=== PATIENT | male | born 1960 | race African-American/Black ===

== ENCOUNTER 2017-04-18 15:24 | Inpatient (IN) | payer SELFPAY ==
[~2017-04-18] VITALS: Ht 182.9 cm; Wt 122.3 kg
[2017-04-18 15:45] LABS: HEMATOCRIT 50.8 % (38.0-50.0); MCH 29.3 PG (29.0-34.0); MCHC 33.9 G/DL (30.0-36.0); MCV 86.4 FL (86-99); MEAN PLAT.VOLUME 13.1 uM^3 (9.0-12.4); NRBC (%) 0.3 /100 WBC (0-0); PLATELET COUNT 174 K/uL (156-360); RBC DIS.WIDTH-CV 13.1 % (11.8-14.6); RBC DIS.WIDTH-SD 40.7 % (39-53); RED BLOOD COUNT 5.88 M/uL (4.00-5.50); WHITE BLOOD COUNT 7.1 K/uL (4.1-10.2)
[2017-04-18 15:57] LABS: CHLORIDE 91 mEq/L (99-109); POTASSIUM 4.4 mEq/L (3.7-5.4); SODIUM 126 mEq/L (136-147)
[2017-04-18 16:00] LABS: ADD MIUA? NO; BILIRUBIN NEGATIVE; BLOOD NEGATIVE; COLOR COLORLESS ((YELLOW)); GLUCOSE (STRIP) >=500; KETONES 5; LEUKOCYTES NEGATIVE; NITRITE NEGATIVE; PROTEIN (STRIP) NEGATIVE; SPECIFIC GRAVITY 1.031 (1.000-1.030); UCUL ADDED? NO; UROBILINOGEN 0.2 MG/DL (0.2-1.0)
[2017-04-18 16:00] LABS: ANION GAP 12 MEQ/L (2-14)
[2017-04-18 16:01] LABS: TOTAL BILIRUBIN 0.8 mg/dL (0.0-1.0)
[2017-04-18 16:03] LABS: ALKALINE PHOSPHATASE 116 IU/L (3-129)
[2017-04-18 16:04] LABS: UREA NITROGEN (BUN) 26 mg/dL (9-23)
[2017-04-18 16:11] LABS: GFR ESTIMATE (CALCULATED) 37 mL/min/ (58.99-99999); GLUCOSE 822 mg/dL (70-99)
[2017-04-18 16:37] LABS: CARBON DIOXIDE (BICARBONATE) 26.1 MEQ/L (20-31)
[2017-04-18 18:55] LABS: CHLORIDE 96 mEq/L (99-109); POTASSIUM 4.7 mEq/L (3.7-5.4); SODIUM 132 mEq/L (136-147)
[2017-04-18 18:58] LABS: ANION GAP 10 MEQ/L (2-14)
[2017-04-18 19:01] LABS: GFR ESTIMATE (CALCULATED) 58 mL/min/ (58.99-99999); UREA NITROGEN (BUN) 22 mg/dL (9-23)
[2017-04-18 19:03] LABS: GLUCOSE 599 mg/dL (70-99)
[2017-04-18 22:19] VITALS: BP 127/76
[2017-04-19 04:19] LABS: POINT-OF-CARE METER ID UU13113725
[2017-04-19 06:03] LABS: POINT-OF-CARE METER ID UU13113774
[2017-04-19 06:13] LABS: HEMATOCRIT 46.9 % (38.0-50.0); MCH 29.3 PG (29.0-34.0); MCHC 33.7 G/DL (30.0-36.0); MCV 86.9 FL (86-99); MEAN PLAT.VOLUME 12.4 uM^3 (9.0-12.4); PLATELET COUNT 149 K/uL (156-360); RBC DIS.WIDTH-CV 13.1 % (11.8-14.6); RBC DIS.WIDTH-SD 41.1 % (39-53); WHITE BLOOD COUNT 5.6 K/uL (4.1-10.2)
[2017-04-19 06:42] LABS: ANION GAP 11 MEQ/L (2-14); CHLORIDE 102 MEQ/L (99-109); GFR ESTIMATE (CALCULATED) > 59 mL/min/ (58.99-99999); GLUCOSE 313 mg/dL (70-99); HDL CHOLESTEROL 30 MG/DL (Desirable>=40); LDL CHOLESTEROL 96 mg/dL (Desirable<100); NON-HDL CHOLESTEROL 149 mg/dL (Desirable<160); POTASSIUM 4.4 MEQ/L (3.7-5.4); SAMPLE HEMOLYSIS CHECK 0; SAMPLE ICTERIC CHECK 0; SAMPLE LIPEMIA CHECK 0; SODIUM 137 MEQ/L (136-147); TOTAL CHOLESTEROL 179 mg/dL (Desirable<200); TRIGLYCERIDES 263 MG/DL (Normal: <150); UREA NITROGEN (BUN) 17 mg/dL (9-23)
[2017-04-19 07:05] VITALS: BP 133/83
[2017-04-19 08:42] LABS: Estimated Average Glucose 378 mg/dL (70-123); HEMOGLOBIN A1c (GLYCOHEMOGLOB) 14.8 % HGB (Below 5.7)
[2017-04-19 10:50] LABS: POINT-OF-CARE METER ID UU13113725
[2017-04-19 14:05] LABS: POINT-OF-CARE METER ID UU13113774
[2017-04-19 14:12] LABS: POINT-OF-CARE METER ID UU13113747; POINT-OF-CARE USER ID STWBNM
[2017-04-19 14:12] LABS: POINT-OF-CARE METER ID UU13113725
[2017-04-19 15:30] VITALS: BP 137/82
[2017-04-19 16:14] LABS: POINT-OF-CARE METER ID UU13113774
[2017-04-19 21:53] LABS: POINT-OF-CARE METER ID UU13113774
[2017-04-20 00:05] VITALS: BP 142/86
[2017-04-20 03:59] LABS: POINT-OF-CARE METER ID UU13113725
[2017-04-20 05:49] LABS: POINT-OF-CARE METER ID UU13113725
[2017-04-20 09:00] VITALS: BP 124/79
[2017-04-20 10:47] LABS: POINT-OF-CARE METER ID UU13113774
[2017-04-20] MEDS ORDERED: GLIPIZIDE5 MG PO (11:52)
[2017-04-20] MEDS ORDERED: METFORMIN HCL500 MG PO (11:52)
== END 2017-04-20 16:00 | disposition home or self-care (01) | DRG 638 ==
LOC: EME 15:24 → EDOF 18:55 → 5EAST 18:55 → ENRESERV 18:56 → 5EAST 21:51
PROVIDERS: Hospitalist; Physician Assistant
DX: E11.65 Type 2 diabetes mellitus with hyperglycemia (principal); N17.9 Acute kidney failure, unspecified; D75.1 Secondary polycythemia; E66.9 Obesity, unspecified; E86.0 Dehydration; E78.5 Hyperlipidemia, unspecified; Z79.84 Long term (current) use of oral hypoglycemic drugs; Z68.36 Body mass index [BMI] 36.0-36.9, adult; Z83.3 Family history of diabetes mellitus
CPT/HCPCS: 80048; 80048 91; 80053; 80061; 81003; 82010; 82803; 82948; 83036; 84443; 85027; 93005; 99281; 99285; J1815; J7030